=== PATIENT | male | born 1995 | race Caucasian/White ===

== ENCOUNTER 2019-03-13 13:24 | Day surgery (SDC) | payer BC ==
[2019-03-13] MEDS ORDERED: Pantoprazole 40 MG Vial IVPUSH ONE (13:37)
[2019-03-13] MEDS ORDERED: Sodium Chloride 0.9% 10 ML Syringe FLUSH PRN (13:37)
[2019-03-13] MEDS ORDERED: Ondansetron 4 MG/2 ML SDV IVPUSH ONE (13:38)
--- NOTE | 2019-03-13 13:43 | EDM.PDOC ---
ED HPI GENERAL MEDICAL PROBLEM - General Chief Complaint: Gastrointestinal Problem Stated Complaint: ABD PAIN, VOMITING Time Seen by Provider: 03/13/19 13:30 Source of Information: Reports: Patient, Family, Old Records History Limitations: Reports: No Limitations - History of Present Illness INITIAL COMMENTS - FREE TEXT/NARRATIVE: Enrique comes to [facility] ED from Urgent Care for assessment of persistent epigastric pain, emeses of some BRB, and nonresponse to conservative measures. He has been ill for 3 days, beginning with epigastric pain that was nonradiating. He managed sxs with Naproxen and fluids. Sxs escalated this am with vomiting associated with some BRB, and a visit to Urgent Care. Lab studies reviewed including CBC, CMP, and amylase, all baseline. The Zofran ODT was not helpful. There appears to be a PMH of GERD, but no hx of PUD. He denies ETOH or NSAID use, although he does use NSAIDs for migraine headaches when sxs emerge. Upper abdominal rediating to lower abdomen Pain Score (Numeric/FACES): 3 - Related Data Allergies Allergy/AdvReac Type Severity Reaction Status Date / Time bee venom protein (honey bee) Allergy Swelling Verified 03/13/19 13:47 Home Meds: Home Meds NK [No Known Home Meds] 03/13/19 [History] ED ROS GENERAL - Review of Systems Review Of Systems: See Below Constitutional: Reports: No Symptoms HEENT: Reports: No Symptoms Respiratory: Reports: No Symptoms Cardiovascular: Reports: No Symptoms Endocrine: Reports: No Symptoms GI/Abdominal: Reports: Abdominal Pain, Decreased Appetite, Hematemesis, Nausea, Vomiting : Reports: No Symptoms Musculoskeletal: Reports: No Symptoms Skin: Reports: No Symptoms Neurological: Reports: No Symptoms Psychiatric: Reports: No Symptoms Hematologic/Lymphatic: Reports: No Symptoms Immunologic: Reports: No Symptoms ED EXAM, GI/ABD - Physical Exam Exam: See Below Exam Limited By: No Limitations General Appearance: Alert, WD/WN, Mild Distress Eyes: Bilateral: Normal Appearance, EOMI Ears: Normal External Exam Nose: Normal Inspection Throat/Mouth: Normal Inspection, Normal Oropharynx Head: Normocephalic Neck: Normal Inspection, Supple Respiratory/Chest: Lungs Clear Cardiovascular: Regular Rate, Rhythm GI/Abdominal Exam: Normal Bowel Sounds, Soft, No Organomegaly, No Distention, No Mass, Tender (epigastrium) (Male) Exam: Deferred Rectal (Males) Exam: Deferred Back Exam: Normal Inspection Extremities: Normal Inspection Neurological: Alert, Oriented, CN II-XII Intact, Normal Cognition, No Motor/ Sensory Deficits Psychiatric: Normal Affect, Normal Mood Skin Exam: Warm, Dry, Intact, Normal Color Lymphatic: No Adenopathy Course - Vital Signs Text/Narrative:: Following an interview, exam, and review of UC records, I started an IV in the RUE and administered 1L NS and Protonix 80 mg IV, and Zofran 4 mg IV. There was clinical improvement within an hour. Case was discussed with Dr James who will conduct a surgical consult regarding management. Last Recorded V/S: Last Vital Signs Temp 36.6 C 03/13/19 13:25 Pulse 68 03/13/19 13:25 Resp 18 03/13/19 13:25 BP 161/84 H 03/13/19 13:25 Pulse Ox 98 03/13/19 13:25 - Orders/Labs/Meds Orders: Active Orders 24 hr Category Date Time Status Sodium Chloride 0.9% [Normal Saline] 1,000 ml Med 03/13/19 13:45 Active IV ASDIRECTED Sodium Chloride 0.9% [Saline Flush] Med 03/13/19 13:37 Active 10 ml FLUSH ASDIRECTED PRN Peripheral IV Insertion Adult [OM.PC] Routine Oth 03/13/19 13:37 Ordered Medication Orders Sodium Chloride (Normal Saline) 1,000 mls @ 999 mls/hr IV ASDIRECTED ROMA Last Admin: 03/13/19 14:20 Dose: 999 mls/hr Sodium Chloride (Saline Flush) 10 ml FLUSH ASDIRECTED PRN PRN Reason: Keep Vein Open Meds: Medications Generic Name Dose Route Start Last Admin Trade Name Freq PRN Reason Stop Dose Admin Sodium Chloride 1,000 mls @ 999 mls/hr 03/13/19 13:45 03/13/19 14:20 Normal Saline IV 999 mls/hr ASDIRECTED ROMA Administration Sodium Chloride 10 ml 03/13/19 13:37 Saline Flush FLUSH ASDIRECTED PRN Keep Vein Open Discontinued Medications Generic Name Dose Route Start Last Admin Trade Name Freq PRN Reason Stop Dose Admin Ondansetron HCl 4 mg 03/13/19 13:38 03/13/19 14:21 Zofran IVPUSH 03/13/19 13:39 4 mg ONETIME ONE Administration Pantoprazole Sodium 80 mg 03/13/19 13:37 03/13/19 14:23 Protonix Iv IVPUSH 03/13/19 13:38 80 mg .BOLUS ONE Administration Departure - Departure Time of Disposition: 15:50 Disposition: Home, Self-Care 01 Condition: Fair Clinical Impression: Peptic ulcer - Discharge Information *PRESCRIPTION DRUG MONITORING PROGRAM REVIEWED*: Not Applicable *COPY OF PRESCRIPTION DRUG MONITORING REPORT IN PATIENT AYDEN: Not Applicable Referrals: PCP,None [Primary Care Provider] - Forms: ED Department Discharge - Problem List & Annotations (1) Peptic ulcer SNOMED Code(s): 92324626 Code(s): K27.9 - PEPTIC ULC, SITE UNSP, UNSP AC OR CHR, W/O HEMOR OR PERF Status: Acute Current Visit: Yes Annotation/Comment:: Enrique is clinically stable. A consult with Dr James is pending this afternoon. - Problem List Review Problem List Initiated/Reviewed/Updated: Yes - My Orders Last 24 Hours: My Active Orders 03/13/19 13:37 Sodium Chloride 0.9% [Saline Flush] 10 ml FLUSH ASDIRECTED PRN Peripheral IV Insertion Adult [OM.PC] Routine 03/13/19 13:45 Sodium Chloride 0.9% [Normal Saline] 1,000 ml IV ASDIRECTED - Assessment/Plan Last 24 Hours: My Active Orders 03/13/19 13:37 Sodium Chloride 0.9% [Saline Flush] 10 ml FLUSH ASDIRECTED PRN Peripheral IV Insertion Adult [OM.PC] Routine 03/13/19 13:45 Sodium Chloride 0.9% [Normal Saline] 1,000 ml IV ASDIRECTED Plan: Follow up with Dr Jensen.
[2019-03-13] MEDS ORDERED: Sodium Chloride 0.9% 1,000 ML IV SCH (13:45)
[2019-03-13] MEDS ORDERED: Lactated Ringers 1,000 ML IV SCH (16:15)
--- NOTE | 2019-03-13 16:29 | PCM.HP.2 ---
H&P History of Present Illness - General Date of Service: 03/13/19 Admit Problem/Dx: Pt developed some abd pain on Monday. Present since Monday. Intermittent. no real exacerbating or relieving factors. Had emesis the am. Some streaks of blood. Smokes no etoh. CT scan thickening of antrum. Some relief with Zofran and PPI. Upper abdominal rediating to lower abdomen Pain Score (Numeric/FACES): 3 - Related Data Allergies/Adverse Reactions: Allergies Allergy/AdvReac Type Severity Reaction Status Date / Time bee venom protein (honey bee) Allergy Swelling Verified 03/13/19 13:47 Home Medications: Home Meds NK [No Known Home Meds] 03/13/19 [History] Past Medical History Musculoskeletal History: Reports: Fracture Other Musculoskeletal History: hx R 3rd digit fx Neurological History: Reports: Migraines Endocrine/Metabolic History: Reports: Obesity/BMI 30+ - Past Surgical History HEENT Surgical History: Reports: Adenoidectomy, Oral Surgery, Tonsillectomy Musculoskeletal Surgical History: Reports: None Social & Family History - Family History Family Medical History: Noncontributory - Tobacco Use Smoking Status *Q: Current Every Day Smoker Years of Tobacco use: 9 Packs/Tins Daily: 1 - Caffeine Use Caffeine Use: Reports: Coffee, Energy Drinks, Soda, Tea - Recreational Drug Use Recreational Drug Use: No H&P Review of Systems - Review of Systems: Review Of Systems: See Below General: Reports: No Symptoms HEENT: Reports: No Symptoms Pulmonary: Reports: No Symptoms Cardiovascular: Reports: No Symptoms Gastrointestinal: Reports: Abdominal Pain, Hematemesis, Nausea, Vomiting Genitourinary: Reports: No Symptoms Musculoskeletal: Reports: Back Pain Skin: Reports: Rash Psychiatric: Reports: No Symptoms Exam - Exam Exam: See Below - Vital Signs Vital Signs: Last Vital Signs Temp 97.9 F 03/13/19 13:25 Pulse 68 03/13/19 13:25 Resp 18 03/13/19 13:25 BP 161/84 H 03/13/19 13:25 Pulse Ox 98 03/13/19 13:25 Weight: 111.13 kg - Exam General: Alert, Oriented, Cooperative, Mild Distress HEENT: PERRLA, Conjunctiva Clear, Mucosa Moist & [place], TMs Clear Lungs: Clear to Auscultation Cardiovascular: Regular Rate, Regular Rhythm GI/Abdominal Exam: Normal Bowel Sounds, Soft, Tender (epigastric ) Back Exam: Normal Inspection Extremities: Normal Inspection *Q Meaningful Use (ADM) - VTE *Q VTE Anticoagulation Contraindications: Medical/Procedure Contrai - Problem List (1) Hematemesis SNOMED Code(s): 2352303 ICD Code: K92.0 - HEMATEMESIS Status: Acute Current Visit: Yes Problem List Initiated/Reviewed/Updated: Yes Orders Last 24hrs: Active Orders 24 hr Category Date Time Status Lactated Ringers [Ringers, Lactated] 1,000 ml Med 03/13/19 16:15 Active IV ASDIRECTED Sodium Chloride 0.9% [Normal Saline] 1,000 ml Med 03/13/19 13:45 Active IV ASDIRECTED Sodium Chloride 0.9% [Saline Flush] Med 03/13/19 13:37 Active 10 ml FLUSH ASDIRECTED PRN Peripheral IV Insertion Adult [OM.PC] Routine Oth 03/13/19 13:37 Ordered Medication Orders Sodium Chloride (Normal Saline) 1,000 mls @ 999 mls/hr IV ASDIRECTED [facility] Last Admin: 03/13/19 14:20 Dose: 999 mls/hr Lactated Ringer's (Ringers, Lactated) 1,000 mls @ 250 mls/hr IV ASDIRECTED [facility] Last Admin: 03/13/19 16:13 Dose: 250 mls/hr Sodium Chloride (Saline Flush) 10 ml FLUSH ASDIRECTED PRN PRN Reason: Keep Vein Open Assessment/Plan Comment:: egd. Procedure and risks explained to the patient to include bleeding, infection , perforation. He asks us to proceed.
[2019-03-13] MEDS ORDERED: Propofol 200 MG/20 ML SDV IV ONE (16:38)
--- NOTE | 2019-03-13 17:03 | PCM.OPNOTE ---
- General Post-Op/Procedure Note Date of Surgery/Procedure: 03/13/19 Operative Procedure(s): egd with bx Findings: gastritis at cardia ulceration in antrum, linear Pre Op Diagnosis: bloody emesis. epigastric abd pain Post-Op Diagnosis: gastritis at cardia. ulceration in antrum, linear Anesthesia Technique: MAC Primary Surgeon: Aguilar James Anesthesia Provider: Denny Mclean Pathology: stomach Complications: None Condition: Good Free Text/Narrative:: Intake & Output 03/13/19 03/13/19 03/13/19 06:59 14:59 22:59 Intake Total 1000 Balance 1000 See dictation
--- NOTE | 2019-03-18 16:08 | OR ---
DATE OF OPERATION: 03/18/2019 SURGEON: Aguilar James MD PROCEDURE PERFORMED: EGD with cold forceps biopsy. PREOPERATIVE DIAGNOSIS: Bloody emesis and history of epigastric abdominal pain. POSTOPERATIVE DIAGNOSIS: Gastritis of the cardia and ulcerations of the antrum. INDICATIONS FOR PROCEDURE: This is a 23-year-old white male who presented to the emergency department with the above-mentioned complaints. He developed some epigastric abdominal pain over the weekend, developed some emesis and was noted on subsequent workup to have some thickening of the antrum, which was suggestive of peptic ulcer disease. Upper endoscopy was offered to obtain a diagnosis of the patient's underlying disease process. DESCRIPTION OF OPERATION: After an excellent IV sedation was administered, the bite block was inserted. The flexible endoscope was passed without difficulty down the patient's esophagus into the stomach. The stomach was insufflated. The scope was passed through the pylorus to the second portion of the duodenum and slowly withdrawn. The following findings were noted: The duodenal was unremarkable. Stomach demonstrated marked ulcerations, which had a linear appearance. Although this did not appear to be like consistent with a true ulceration, it almost had a consistency suggestive of almost a chemical burn. Photo and community service representative biopsies of the tissue were taken. On retroflexing the scope, there was another marked area of inflammation in the area of the cardia. Photo and biopsies were taken as well. The esophagus was unremarkable. The patient tolerated the procedure well. The scope was removed. The stomach was deflated. /[id number] /[id number]
== END 2019-03-13 18:00 ==
LOC: FB.ED 13:24 → FB.SDS 16:37 → FB.MS 16:37 → FB.SDS 16:55 → FB.MS 18:00 → FB.SDS 18:00
PROVIDERS: ATTEND Surgery
DX: K29.51 Unspecified chronic gastritis with bleeding (principal); K25.4 Chronic or unspecified gastric ulcer with hemorrhage; B96.81 Helicobacter pylori [H. pylori] as the cause of diseases classified elsewhere; I10 Essential (primary) hypertension; F17.210 Nicotine dependence, cigarettes, uncomplicated; G47.33 Obstructive sleep apnea (adult) (pediatric)
CPT/HCPCS: 36415; 43239; 74177; 80053; 81001; 82150; 85025; 86140; 88305; 88342; 96361; 96374; 96375; 99285; C9113; J2405; J2704; J7030; J7120; Q9967